=== PATIENT | male | born 1970 | race Caucasian/White ===

== ENCOUNTER 2017-12-07 23:57 | Emergency (ER) | payer OTHER ==
[~2017-12-07] VITALS: Ht 170.2 cm; Wt 92.9 kg
[~2017-12-07 23:57] MED LIST: ALLOPURINOL100 MG PO; ASPIRIN EC325 MG PO; ASPIRIN325 MG PO; BENICAR40 MG PO; CLOTRIM ANTIFUN15 GM TP; COLCRYS0.6 MG PO; CRESTOR10 MG PO; CRESTOR40 MG PO; FENOFIBRATE160 MG PO; HYDROCHLOROTHIA25 MG PO; IBUPROFEN800 MG PO; KAYEXALATE453.6 GM PO; LISINOPRIL10 MG PO; LOPRESSOR50 MG PO; LOSARTAN POTASS25 MG PO; METOPROLOL SUCC50 MG PO; NIFEDIPINE ER60 MG PO; PLAVIX75 MG PO; PROCARDIA XL30 MG PO; SODIUM BICARBO325 MG PO; ZOCOR40 MG PO; ZOCOR80 MG PO
[2017-12-08 01:56] LABS: HEMATOCRIT 36.7 % (38.0-50.0); HEMOGLOBIN 12.7 G/DL (12.5-16.6); MCH 31.1 PG (29.0-34.0); MCHC 34.6 G/DL (30.0-36.0); PLATELET COUNT 316 K/uL (156-360); RBC DIS.WIDTH-CV 13.2 % (11.8-14.6); RED BLOOD COUNT 4.08 M/uL (4.00-5.50); WHITE BLOOD COUNT 8.2 K/uL (4.1-10.2)
[2017-12-08 02:11] LABS: CHLORIDE 111 mEq/L (99-109); POTASSIUM 4.5 mEq/L (3.7-5.4); SODIUM 140 mEq/L (136-147)
[2017-12-08 02:13] LABS: GLUCOSE 105 mg/dL (70-99)
[2017-12-08 02:17] LABS: CREATININE 2.3 mg/dL (0.6-1.3); GFR ESTIMATE (CALCULATED) 33 mL/min/ (58.99-99999)
[2017-12-08 02:18] LABS: UREA NITROGEN (BUN) 33 mg/dL (9-23)
[2017-12-08] MEDS ORDERED: BENADRYL50 MG PO (04:14)
[2017-12-08] MEDS ORDERED: PREDNISONE20 MG PO (04:14)
[2017-12-08] MEDS ORDERED: PEPCID20 MG PO (04:14)
[2017-12-08 04:59] VITALS: BP 124/79
== END 2017-12-08 05:07 | disposition home or self-care (01) ==
LOC: EME 23:57
PROVIDERS: Emergency Medicine
DX: L50.0 Allergic urticaria (principal); E78.5 Hyperlipidemia, unspecified; I10 Essential (primary) hypertension; I25.2 Old myocardial infarction; I25.10 Atherosclerotic heart disease of native coronary artery without angina pectoris; Z95.5 Presence of coronary angioplasty implant and graft; Z79.82 Long term (current) use of aspirin
CPT/HCPCS: 80048; 85027; 99281; 99285; J2930